=== PATIENT | female | born 1985 | race Caucasian/White ===

== ENCOUNTER 2022-12-29 06:39 | Day surgery (SDC) | payer OTHER ==
[~2022-12-29 06:39] MED LIST: Lactated Ringers 1,000 ML IV SCH; Sodium Chloride 0.9% 10 ML Syringe FLUSH PRN; Sodium Chloride 0.9% 2.5 ML Syringe FLUSH PRN; Sodium Chloride 0.9% 20 ML SDV IV PRN
[2022-12-29] MEDS ORDERED: Propofol 200 MG/20 ML SDV ONE ×3 (07:35→08:43)
[2022-12-29] MEDS ORDERED: Midazolam 1 MG/ML 2 ML SDV ONE (07:35)
[2022-12-29] MEDS ORDERED: fentaNYL 100 MCG/2 ML SDV ONE (07:35)
[2022-12-29] MEDS ORDERED: Bupivacaine 0.5% 30 ML SDV ONE (07:36)
[2022-12-29] MEDS ORDERED: Lidocaine 2% 11 ML Jelly Filled Syringe ONE (07:37)
[2022-12-29] MEDS ORDERED: Albuterol 0.083% 2.5 MG/3 ML Neb Soln NEB PRN (07:49)
[2022-12-29] MEDS ORDERED: Morphine 2 MG/ML SYRINGE IVPUSH PRN (07:49)
[2022-12-29] MEDS ORDERED: fentaNYL 50 MCG/ML SDV IVPUSH PRN (07:49)
[2022-12-29] MEDS ORDERED: Metoclopramide 10 MG/2 ML SDV IVPUSH PRN (07:49)
[2022-12-29] MEDS ORDERED: HYDROmorphone 1 MG/ML Syringe IVPUSH PRN (07:49)
[2022-12-29] MEDS ORDERED: Ondansetron 4 MG/2 ML SDV IVPUSH PRN (07:49)
[2022-12-29] MEDS ORDERED: Naloxone 0.4 MG/ML SDV IVPUSH PRN (07:49)
[2022-12-29] MEDS ORDERED: cefOXitin 1 GM Vial ONE (08:12)
[2022-12-29] MEDS ORDERED: cefOXitin 2 GM in Sodium Chloride 0.9% 50 ML IV ONE (08:27)
[2022-12-29] MEDS ORDERED: Acetaminophen/oxyCODONE 325-5 MG Tab PO ONE (13:06)
== END 2022-12-29 13:35 | disposition home or self-care (01) ==
LOC: MW.SDS 06:39
PROVIDERS: ATTEND Surgery
DX: K64.3 Fourth degree hemorrhoids (principal); R19.4 Change in bowel habit; Z80.0 Family history of malignant neoplasm of digestive organs; Z83.71 Family history of colonic polyps; Z79.899 Other long term (current) drug therapy
CPT/HCPCS: 45378; 46255; 81025; A9270; J0694; J2250; J2704; J3010; J3490; J7120; 00902